=== PATIENT | female | born 1995 | race African-American/Black ===

== ENCOUNTER 2021-08-27 11:47 | Emergency (ER) | payer MEDICAID ==
[~2021-08-27] VITALS: Ht 175.3 cm; Wt 102.0 kg
[2021-08-27 12:03] VITALS: BP 118/90
[2021-08-27] MEDS ORDERED: CLINDAMYCIN 600 MG in DEXTROSE 5% WATER 50 ML IV ONE (12:15)
[2021-08-27] MEDS ORDERED: DEXAMETHASONE 10 MG/ML VIAL IV ONE (12:15)
[2021-08-27] MEDS ORDERED: SODIUM CHLORIDE 0.9% 1,000 ML IV ONE (12:15)
[2021-08-27] MEDS ORDERED: CEFTRIAXONE 2 G PREMIX 50 ML IV ONE (12:15)
[2021-08-27] MEDS ORDERED: LIDOCAINE HCL/EPINEPHRINE 1%-EPI 1:100,000 30 ML VIAL INFIL ONE (13:15)
[2021-08-27] MEDS ORDERED: CLINDAMYCIN 600MG PREMIX 50 ML IV SCH (13:15)
[2021-08-27] MEDS: TETRACAINE/BENZOCAINE/BUTAMBEN 20 GM SPRAY MM NR ×2 (13:30→15:30)
[2021-08-27] MEDS ORDERED: KETOROLAC 15MG/ML VIAL IV ONE (16:00)
[2021-08-27] MEDS ORDERED: AMOX1TAB16 MT (16:08)
[2021-08-27] MEDS ORDERED: P20 MT (16:09)
== END 2021-08-27 16:25 | disposition home or self-care (01) ==
LOC: ER 11:47
DX: J36 Peritonsillar abscess (principal)
CPT/HCPCS: 96365; 96367; 96375; 99284; J0696; J1100; J3490; J7030; J1885; J7060

== ENCOUNTER 2022-11-02 00:08 | Emergency (ER) | payer MEDICAID, OTHER ==
[~2022-11-02] VITALS: Ht 175.3 cm; Wt 108.7 kg
[~2022-11-02 00:08] MED LIST: AMOX1TAB16 MT; P20 MT
[2022-11-02 00:21] VITALS: BP 109/69
== END 2022-11-02 04:49 | disposition home or self-care (01) ==
LOC: ER 00:08
DX: J45.909 Unspecified asthma, uncomplicated (principal); F17.200 Nicotine dependence, unspecified, uncomplicated
CPT/HCPCS: 71045; 93005; 99283

== ENCOUNTER 2023-08-01 14:04 | Emergency (ER) | payer MEDICAID, OTHER ==
[~2023-08-01] VITALS: Ht 180.3 cm; Wt 76.0 kg
[2023-08-01 15:11] VITALS: BP 121/79; PULSE 80; RESP 16; TEMP 98.8; O2SAT 100
[2023-08-01] MEDS ORDERED: ACETAMINOPHEN 325MG TABLET PO ONE (16:00)
[2023-08-01] MEDS ORDERED: ACETAMINOPHEN 325MG TABLET PO NR (19:45)
== END 2023-08-01 19:50 | disposition home or self-care (01) ==
LOC: ER 14:04
DX: M79.672 Pain in left foot (principal); M79.671 Pain in right foot
CPT/HCPCS: 73630; 99283

== ENCOUNTER 2025-01-03 23:06 | Emergency (ER) | payer OTHER ==
[~2025-01-03] VITALS: Ht 175.3 cm; Wt 114.0 kg
[2025-01-03 23:19] VITALS: O2SAT 99
[2025-01-03 23:25] VITALS: BP 125/75; PULSE 115; RESP 15; TEMP 37.1; O2SAT 99
[2025-01-04 00:14] LABS: CHLORIDE 108 mEq/L (98-107); POTASSIUM 3.8 mEq/L (3.5-5.1); SODIUM 140 mEq/L (136-145)
[2025-01-04 00:15] LABS: CARBON DIOXIDE 22 mEq/L (21-32)
[2025-01-04 00:16] LABS: CALCIUM 9.1 mg/dL (8.7-10.4)
[2025-01-04 00:20] LABS: CREATININE 0.8 mg/dL (0.6-1.0); GLUCOSE 132 mg/dL (70-105)
[2025-01-04 00:21] LABS: UREA NITROGEN BLOOD 10 mg/dL (9-23)
[2025-01-04 00:22] LABS: ALANINE AMINOTRANSFERASE 38 IU/L (10-49); ALBUMIN 3.8 g/dL (3.2-4.8); ASPARTATE AMINOTRANSFERASE 31 IU/L (<34); BASOPHILS % 0.4 % (0.0-2.0); EOSINOPHILS % 1.1 % (0.0-5.0); HEMATOCRIT. 31.9 % (36.0-48.0); HEMOGLOBIN. 10.8 g/dL (12.0-16.0); LYMPHOCYTES % 24.9 % (20.0-50.0); MEAN CORPUSCULAR HEMOGLOBIN 28.5 pg (28.0-32.0); MEAN CORPUSCULAR HGB CONC 33.7 g/dL (31.0-37.0); MEAN CORPUSCULAR VOLUME 84.5 fL (81.0-99.0); MEAN PLATELET VOLUME 10.2 fl (7.4-10.4); MONOCYTES % 7.6 % (2.0-8.0); PLATELET 156 x1000/uL (130-400); RED BLOOD CELL COUNT 3.78 mill/uL (4.2-5.4); RED CELL DISTRIBUTION WIDTH 15.4 % (11.6-14.6); WHITE BLOOD COUNT 10.8 x1000/uL (4.5-11.0)
[2025-01-04 00:23] LABS: BILIRUBIN DIRECT < 0.1 mg/dL (<=3.0); BILIRUBIN TOTAL 0.2 mg/dL (0.1-1.0); PROTEIN TOTAL 6.4 g/dL (6.0-8.3)
[2025-01-04 00:38] LABS: B-HCG QUANTITATIVE 36013 mIU/mL (<6)
== END 2025-01-04 00:46 | disposition left against medical advice (07) ==
LOC: ER 23:06
DX: R10.84 Generalized abdominal pain (principal); N89.8 Other specified noninflammatory disorders of vagina; Z53.21 Procedure and treatment not carried out due to patient leaving prior to being seen by health care provider
CPT/HCPCS: 36415; 80048; 80076; 84702; 85025